=== PATIENT | male | born 1995 | race Caucasian/White ===

== ENCOUNTER 2017-08-24 16:26 | Observation (INO) | payer OTHER ==
[2017-08-24] MEDS ORDERED: HYDROmorphONE/DILAUDID 1 MG/ML INJ IVP ONE ×2 (17:52→19:34)
[2017-08-24] MEDS ORDERED: NS 1,000 ML IV ONE (17:52)
[2017-08-24] MEDS ORDERED: ONDANSETRON 4 MG/2 ML VIAL IVP ONE ×2 (17:52→19:34)
--- NOTE | 2017-08-24 17:55 | EDPHY ---
H & P Time Seen by Provider: 08/24/17 17:37 HPI/ROS: Chief complaint. Abdominal pain HPI. 22-year-old male presents emergency department with sudden onset of periumbilical and slight right lower quadrant pain that began about 2 o'clock this afternoon. He was well until this occurred. he has had nausea vomiting. No gas or stool since the onset. No urinary symptoms. No similar symptoms previously. The patient has had a left nephrectomy secondary to trauma from a soccer injury. Pain is worse with movement but also occurring at rest. No fever. No chest discomfort or trouble breathing ROS Constitutional. no fever/chills, no weakness Eyes. no problems with vision ENT. no sore throat, no nasal drainage Cardiovascular. no chest pain Respiratory. no shortness of breath, no cough Abdominal. Periumbilical and right-sided abdominal pain with nausea and vomiting. No diarrhea . no problems urinating MS. no calf pain/swelling, no neck/back pain, no joint pain Skin. no rash Lymph. no swollen glands Neuro. no headache, no dizziness, no difficulty walking or with speech Past Medical/Surgical History: Left nephrectomy. Social History: Single, nonsmoker, no alcohol Smoking Status: Never smoked Physical Exam: General Appearance: Alert well-developed male moderate severe distress vital signs are stable Eyes: Pupils equal and round no pallor or injection. ENT, Mouth: Mucous membranes are moist. Respiratory: There are no retractions, lungs are clear to auscultation. Cardiovascular: Regular rate and rhythm. Gastrointestinal: Abdomen is soft with tenderness in the periumbilical area and slightly to the right lower quadrant. No left-sided tenderness. Neurological: Awake and alert, sensory and motor exams grossly normal. Skin: Warm and dry, no rashes. Musculoskeletal: Neck is supple nontender. Extremities symmetrical, full range of motion. Psychiatric: Patient is oriented X 3, there is no agitation. Constitutional: Initial Vital Signs Temperature (C) 36.4 C 08/24/17 16:35 Heart Rate 81 08/24/17 16:35 Respiratory Rate 18 08/24/17 16:35 Blood Pressure 146/80 H 08/24/17 16:35 O2 Sat (%) 99 08/24/17 16:35 O2 Delivery Mode Room Air Allergies/Adverse Reactions: No Known Allergies Allergy (Verified 08/24/17 21:42) Home Medications: Medication Instructions Recorded NK [No Known Home Meds] 08/24/17 Medical Decision Making - Diagnostics Imaging Results: Imaging Impressions Abdomen CT 08/24/17 17:52 Impression: 1. Trace free fluid, uncertain clinical significance. 2. 6.6 cm left hydrocele. 3. Splenomegaly. 4. Known solitary right kidney 5. Additional findings, as above. Findings discussed with Hardeep Price M.D., on August 24, [address] abdomen and pelvis reviewed by me and discussed with Dr. Maldonado is normal. Normal appendix. No evidence for bowel obstruction. Procedures: IV normal saline. Dilaudid for pain. Zofran for nausea ED Course/Re-evaluation: Re-evaluation 8:00 p.m.-- Burn consult and discussion with Dr. Frey, surgeon, who sees the patient in the emergency department. He feels that the patient has appendicitis. Plan is admission and surgery Patient has been given antibiotics in the emergency department. I discussed findings with the patient and his parents. We discussed treatment plan including recommendation for surgery. They expressed understanding and agreement Differential Diagnosis: I considered small-bowel obstruction, appendicitis, kidney stone, vomiting and diarrhea illness such as gastroenteritis - Data Points Laboratory Results: Laboratory Results 08/24/17 17:42 08/24/17 17:42 08/24/17 08/24/17 08/24/17 17:55 17:42 17:42 WBC 8.94 10^3/uL 10^3/uL (3.80-9.50) RBC 5.23 10^6/uL 10^6/uL (4.40-6.38) Hgb 17.6 g/dL H g/dL (13.7-17.5) Hct 47.9 % % (40.0-51.0) MCV 91.6 fL fL (81.5-99.8) MCH 33.7 pg pg (27.9-34.1) MCHC 36.7 g/dL g/dL (32.4-36.7) RDW 11.8 % % (11.5-15.2) Plt Count 220 10^3/uL 10^3/uL (150-400) MPV 9.8 fL fL (8.7-11.7) Neut % (Auto) 75.6 % H % (39.3-74.2) Lymph % (Auto) 18.8 % % (15.0-45.0) Duc[place]ne % (Auto) 4.6 % % (4.5-13.0) Eos % (Auto) 0.3 % L % (0.6-7.6) Baso % (Auto) 0.3 % % (0.3-1.7) Nucleat RBC Rel Count 0.0 % % (0.0-0.2) Absolute Neuts (auto) 6.75 10^3/uL H 10^3/uL (1.70-6.50) Absolute Lymphs (auto) 1.68 10^3/uL 10^3/uL (1.00-3.00) Absolute Monos (auto) 0.41 10^3/uL 10^3/uL (0.30-0.80) Absolute Eos (auto) 0.03 10^3/uL 10^3/uL (0.03-0.40) Absolute Basos (auto) 0.03 10^3/uL 10^3/uL (0.02-0.10) Absolute Nucleated RBC 0.00 10^3/uL 10^3/uL (0-0.01) Immature Gran % 0.4 % % (0.0-1.1) Immature Gran # 0.04 10^3/uL 10^3/uL (0.00-0.10) Sodium 137 mEq/L mEq/L (134-144) Potassium 4.2 mEq/L mEq/L (3.5-5.2) Chloride 101 mEq/L mEq/L (97-110) Carbon Dioxide 24 mEq/l mEq/l (22-31) Anion Gap 12 mEq/L mEq/L (8-16) BUN 14 mg/dL mg/dL (7-23) Creatinine 1.2 mg/dL mg/dL (0.7-1.3) Estimated GFR > 60 Glucose 92 mg/dL mg/dL (70-100) Calcium 10.7 mg/dL H mg/dL (8.5-10.4) Phosphorus 2.6 mg/dL mg/dL (2.5-4.5) Urine Color YELLOW Urine Appearance CLEAR Urine pH 7.0 (5.0-7.5) Ur Specific Davenport 1.018 (1.002-1.030) Urine Protein NEGATIVE (NEGATIVE) Urine Ketones NEGATIVE (NEGATIVE) Urine Blood NEGATIVE (NEGATIVE) Urine Nitrate NEGATIVE (NEGATIVE) Urine Bilirubin NEGATIVE (NEGATIVE) Urine Urobilinogen NEGATIVE EU EU (0.2-1.0) Ur Leukocyte Esterase NEGATIVE (NEGATIVE) Urine RBC 1-3 /hpf /hpf (0-3) Urine WBC 1-3 /hpf /hpf (0-3) Ur Epithelial Cells NONE SEEN /lpf /lpf (NONE-1+) Urine Mucus TRACE /lpf /lpf (NONE-1+) Urine Glucose NEGATIVE (NEGATIVE) Medications Given: Discontinued Medications Hydromorphone HCl (Dilaudid) 1 mg IVP EDNOW ONE Stop: 08/24/17 17:53 Last Admin: 08/24/17 18:04 Dose: 1 mg Hydromorphone HCl (Dilaudid) 0.5 mg IVP EDNOW ONE Stop: 08/24/17 19:35 Last Admin: 08/24/17 19:35 Dose: 0.5 mg Sodium Chloride (Ns) 1,000 mls @ 0 mls/hr IV EDNOW ONE; Wide Open PRN Reason: Protocol Stop: 08/24/17 17:53 Last Admin: 08/24/17 18:04 Dose: 1,000 mls Cefazolin Sodium/Dextrose (Ancef 2 Gm (Premix)) 100 mls @ 200 mls/hr IV ONCALL ONE PRN Reason: Protocol Stop: 08/24/17 21:29 Last Admin: 08/24/17 21:24 Dose: 100 mls Ondansetron HCl (Zofran) 4 mg IVP EDNOW ONE Stop: 08/24/17 17:53 Last Admin: 08/24/17 18:03 Dose: 4 mg Ondansetron HCl (Zofran) 4 mg IVP EDNOW ONE Stop: 08/24/17 19:35 Last Admin: 08/24/17 19:35 Dose: 4 mg Departure - Departure Disposition: [facility] Acute Clinical Impression: Acute appendicitis Qualifiers: Acute appendicitis type: with localized peritonitis Qualified Code(s): K35.3 - Acute appendicitis with localized peritonitis Condition: Fair
[2017-08-24 17:59] LABS: % IMMATURE GRANULYOCYTES 0.4 % (0.0-1.1); ABSOLUTE IMMATURE GRANULOCYTES 0.04 10^3/uL (0.00-0.10); ADD DIFF? NO; ADD MORPH? NO; ADD SCAN? NO; ATYPICAL LYMPHOCYTE FLAG 10 (0-99); FRAGMENT RBC FLAG 0 (0-99); HEMATOCRIT 47.9 % (40.0-51.0); HEMOGLOBIN 17.6 g/dL (13.7-17.5); LEFT SHIFT FLG 0 (0-99); LIPEMIA HEMOLYSIS FLAG 90 (0-99); MEAN CELL HEMOGLOBIN 33.7 pg (27.9-34.1); MEAN CELL HEMOGLOBIN CONCENTR. 36.7 g/dL (32.4-36.7); MEAN CELL VOLUME 91.6 fL (81.5-99.8); MEAN PLATELET VOLUME 9.8 fL (8.7-11.7); PLATELET CLUMPS FLAG 0 (0-99); PLATELET COUNT 220 10^3/uL (150-400); RED BLOOD CELL COUNT 5.23 10^6/uL (4.40-6.38); RED CELL DISTRIBUTION WIDTH 11.8 % (11.5-15.2)
[2017-08-24 18:17] LABS: COLOR YELLOW; LEUKOCYTE ESTERASE,URINE NEGATIVE (NEGATIVE); NITRITE,URINE NEGATIVE (NEGATIVE)
[2017-08-24 18:19] LABS: MUCUS TRACE /lpf (NONE-1+)
[2017-08-24 18:24] LABS: ANION GAP 12 mEq/L (8-16); CALCIUM 10.7 mg/dL (8.5-10.4); CARBON DIOXIDE 24 mEq/l (22-31); CHLORIDE 101 mEq/L (97-110); CREATININE 1.2 mg/dL (0.7-1.3); GLOMERULAR FILTRATION RATE > 60; GLUCOSE 92 mg/dL (70-100); POTASSIUM 4.2 mEq/L (3.5-5.2); SODIUM 137 mEq/L (134-144)
[2017-08-24] MEDS ORDERED: IOPAMIDOL (ISOVUE-300) 100 ML BTL ONE (18:34)
[2017-08-24] MEDS ORDERED: HYDROmorphONE/DILAUDID 1 MG/ML INJ ONE (19:24)
[2017-08-24] MEDS ORDERED: ONDANSETRON 4 MG/2 ML VIAL ONE ×2 (19:32→23:12)
[2017-08-24] MEDS ORDERED: ceFAZolin 2 GM/DEXTROSE 100 ML IV ONE (21:00)
[2017-08-24] MEDS ORDERED: CEFAZOLIN 2 GM/DEXTROSE/100 ML BAG IV ONE (21:08)
--- NOTE | 2017-08-24 21:22 | GHP ---
[f rep st] HISTORY AND PHYSICAL DATE OF ADMISSION: 08/24/2017 CHIEF COMPLAINT: Abdominal pain. HISTORY OF PRESENT ILLNESS: This is an otherwise healthy 22-year-old male, who presents to the emergency department with acute onset abdominal pain. The patient was in his usual state of health, ate lunch at noon today. States that about 2 p.m. exactly, began to have periumbilical pain which has since relocated to his right lower quadrant. Because of the persistence of pain, as well as extreme nausea and vomiting, the patient presented to the emergency department for further workup. On my examination, the patient has been medicated, but still complains of right lower quadrant pain at McBurney's point, worse when the medication wears off, worse with palpation. The nausea has improved. However, he denies having any fevers and chills, and other than the pain and the now resolved nausea, he has no complaints. PAST MEDICAL HISTORY: None. PAST SURGICAL HISTORY: Left nephrectomy for traumatic kidney injury performed 12 years ago via a horizontal left subcostal incision. FAMILY HISTORY: Noncontributory. SOCIAL HISTORY: Student at [employer] studying [employer]. Denies illicit drug use. MEDICATIONS: Reviewed in [facility]. REVIEW OF SYSTEMS: Full 10-point ROS performed ALLERGIES: None. PHYSICAL EXAM: VITAL SIGNS: Blood pressure 146/80, heart rate 81, his temperature is 36.4 and he is 99% on room air. CONSTITUTIONAL: No apparent distress. He does appear uncomfortable. EYES: His pupils are equal, round, and reactive to light and accommodation. He has anicteric sclerae. His extraocular movements are intact. ENMT: He has dry mucous membranes. His hearing is normal. His ears appear normal with no mucosal ulcers. CARDIOVASCULAR: He has a regular rate and rhythm without any murmurs. RESPIRATORY: He has no respiratory distress. No rales or rhonchi. GI: He has normoactive bowel sounds. His abdomen is soft. He is tender to palpation in the right lower quadrant at McBurney's point, without rebound tenderness. MUSCULOSKELETAL: He has full muscle strength without tenderness. Normal joint range of motion. NEUROLOGIC: He is alert and oriented x3. His cranial nerves 2-12 are intact. He has no weakness or numbness. PSYCHIATRIC: He is interacting appropriately. He is not anxious. He is not encephalopathic. LYMPH/HEME/IMMUNOLOGIC: He has no cervical lymphadenopathy. He has no supraclavicular lymphadenopathy. LABORATORY DATA: White count is normal at 8, hemoglobin is elevated at 17.6, platelets are normal at 220. Chemistry is unremarkable. His creatinine is 1.2. CT scan shows a normal-appearing appendix with no stranding or free fluid, no free air, but likely not or early appendicitis. These images were personally reviewed by me. ASSESSMENT AND PLAN: A 22-year-old male with physical exam findings concerning for appendicitis. I told the patient that although he has a normal white blood cell count and his CT scan is fairly under-whelming, he does have a classical history for appendicitis, and that I am concerned that given his history and persistence of pain that he does likely have an early appendicitis. I gave him the option of observation versus exploration. He stated that he would like to proceed with exploration with appendectomy given the fact that he has persistence of pain. Given this, I will plan to subsequently take the patient to the operating room for exploration. Risks, benefits, and alternatives were discussed. Will plan to proceed to the operating room as time permits. /[id number]/MODL MTDD
[2017-08-24] MEDS ORDERED: MIDAZOLAM 2 MG/2 ML VIAL IVP ONE (22:49)
[2017-08-24] MEDS ORDERED: BUPIVACAINE 0.25% 30 ML SDV ONE (22:49)
--- NOTE | 2017-08-24 22:52 | PDANEPAE ---
ANE Past Medical History - Cardiovascular History Hx Hypertension: No Hx Arrhythmias: No Hx Chest Pain: No Hx Coronary Artery / Peripheral Vascular Disease: No Hx CHF / Valvular Disease: No Hx Palpitations: No - Pulmonary History Hx COPD: No Hx Asthma/Reactive Airway Disease: No Hx Recent Upper Respiratory Infection: No Hx Oxygen in Use at Home: No Hx Sleep Apnea: No Sleep Apnea Screening Result - Last Documented: Negative - Endocrine History Hx Diabetes: No - Chronic Pain History Chronic Pain: Yes ANE Review of Systems Review of Systems: - Exercise capacity Exercise capacity: >=4 METS - Systems Genitourinary: Reports: no symptoms, other (Solitary kidney (nephrectomy following trauma, age 9)) ANE Patient History - Allergies Allergies/Adverse Reactions: No Known Allergies Allergy (Verified 08/24/17 21:42) - Home Medications Home Medications: NK [No Known Home Meds] 08/24/17 [Last Taken Unknown] - NPO status NPO Since - Liquids (Date): 08/24/17 NPO Since - Liquids (Time): 13:00 NPO Since - Solids (Date): 08/24/17 NPO Since - Solids (Time): 13:00 - Anes Hx Anes Hx: no prior problems - Smoking Hx Smoking Status: Never smoked ANE Labs/Vital Signs - Labs Result Diagrams: 08/24/17 17:42 08/24/17 17:42 - Vital Signs Blood Pressure: 123/73 Heart Rate: 60 Respiratory Rate: 15 O2 Sat (%): 99 Height: 190.5 cm Weight: 86.183 kg ANE Physical Exam - Airway Neck exam: FROM Mallampati Score: Class 1 Mouth exam: normal dental/mouth exam - Pulmonary Pulmonary: no respiratory distress, no rales or rhonchi, clear to auscultation - Cardiovascular Cardiovascular: regular rate and rhythym, no murmur, rub, or gallop - ASA Status ASA Status: I, E ANE Anesthesia Plan Anesthesia Plan: general endotracheal anesthesia
[2017-08-24] MEDS ORDERED: ROCURONIUM 50 MG/5 ML VIAL ONE (23:11)
[2017-08-24] MEDS ORDERED: LIDOCAINE 2% 5 ML SDV ONE (23:11)
[2017-08-24] MEDS ORDERED: DEXAMETHASONE 4 MG/ML VIAL ONE ×2 (23:11→23:12)
[2017-08-24] MEDS ORDERED: fentaNYL 100 MCG/2 ML INJ ONE (23:11)
[2017-08-24] MEDS ORDERED: KETOROLAC 30 MG/1 ML SDV ONE (23:11)
[2017-08-24] MEDS ORDERED: PROPOFOL 200 MG/20 ML VIAL ONE (23:11)
[2017-08-24] MEDS ORDERED: SUGAMMADEX SODIUM 200 MG/2 ML VIAL IVP ONE (23:12)
[2017-08-24] MEDS ORDERED: MIDAZOLAM 2 MG/2 ML VIAL ONE (23:22)
[2017-08-24] MEDS ORDERED: NALOXONE HCL 0.4 MG/ML INJ IVP PRN (23:35)
[2017-08-24] MEDS ORDERED: LR 500 ML IV PRN (23:35)
[2017-08-24] MEDS ORDERED: ONDANSETRON 4 MG/2 ML VIAL IVP PRN (23:35)
[2017-08-24] MEDS ORDERED: fentaNYL 100 MCG/2 ML INJ IVP PRN (23:35)
[2017-08-24] MEDS ORDERED: OXYCODONE/APAP 5/325 TAB PO PRN (23:35)
[2017-08-24] MEDS ORDERED: ACETAMINOPHEN 500 MG TAB PO PRN (23:35)
[2017-08-24] MEDS ORDERED: MEPERIDINE 25 MG/ML SYR IVP PRN (23:35)
[2017-08-24] MEDS ORDERED: PROMETHAZINE HCL 25 MG/ML INJ IVP PRN (23:35)
[2017-08-25] MEDS ORDERED: ONDANSETRON 4 MG/2 ML VIAL IVP PRN (00:17)
[2017-08-25] MEDS ORDERED: HYDROmorphONE/DILAUDID 1 MG/ML INJ IVP PRN (00:17)
[2017-08-25] MEDS ORDERED: HYDROCODONE/APAP 5/325 TAB PO PRN (00:17)
--- NOTE | 2017-08-25 00:17 | POSTOPPROG ---
Post Op Note Date of Operation: 08/25/17 Surgeon: Vinny Frey Anesthesiologist: Leta Anesthesia: GET(General Endotracheal) Pre-op Diagnosis: Appendicitis Post-op Diagnosis: possible early appendicitis Procedure: lap appy Findings: relatively normal appearing apendix Inf/Abcess present in the surg proc area at time of surgery?: No EBL: Minimal Specimen(s): appendix
--- NOTE | 2017-08-25 00:26 | POSTANESTH ---
Post Anesthetic Evaluation Cardiovascular Status: Normal, Stable, Similar to Pre-Op Cond Respiratory Status: Normal, Stable, Similar to Pre-op Cond. Level of Consciousness/Mental Status: Can Participate in Eval, Mildly Sleepy, Arousable Pain Control: Adequate, Prn Tx Ordered Nausea/Vomiting Control: Adequate, Prn Tx Ordered Complications Possibly Related to Anesthesia: None Noted
[2017-08-25] MEDS ORDERED: 1/2 NS IV SCH (00:30)
[2017-08-25] MEDS ORDERED: D5W IV SCH (00:30)
[2017-08-25] MEDS ORDERED: POTASSIUM CL IV SCH (00:30)
[2017-08-25] MEDS ORDERED: D5W 1/2 NS W/ 20 KCl/L 1,000 ML IV SCH (00:30)
[2017-08-25 05:04] VITALS: RESP 16; TEMP 98.1; O2SAT 95
--- NOTE | 2017-08-25 05:28 | GOP ---
[f rep st] OPERATIVE REPORT DATE OF OPERATION: 08/25/2017 SURGEON: Vinny Frey MD PRODUCTION TROUBLESHOOTER: None. ANESTHESIA: General endotracheal provided by Vance Gillette MD. PREOPERATIVE DIAGNOSIS: Appendicitis. POSTOPERATIVE DIAGNOSIS: Possible early appendicitis. PROCEDURE PERFORMED: Laparoscopic appendectomy. FINDINGS: Appendix was relatively normal appearing. There was some free fluid within the pelvis whi ch was completely irrigated out. Uneventful appendectomy performed. SPECIMENS: Appendix. ESTIMATED BLOOD LOSS: 5 cc. DESCRIPTION OF PROCEDURE: The patient was greeted in the preoperative suite. Once again, risks, brandy efits, and alternatives were discussed. Consent was signed. He was then brought back to the operati ve suite, placed on the OR table in supine position. After all anesthesia machines, including SCDs, were on and functioning, World Health Organization timeout was performed. After successful induction of general anesthesia, the patient's abdomen was widely prepped and draped in typical sterile fashio n. I entered the abdomen via an infraumbilical cutdown through which the Veress needle was passed. I in sufflated to 15 mmHg CO2, which was well tolerated by the patient. Through this, I then inserted a 1 0 mm Visiport. Once successfully in the abdomen, I placed 2 additional 5 mm trocars, 1 in the suprap ubic, 1 in the left lower quadrant, both under direct visualization. I identified the appendix by tr acing the taeniae inferiorly. Again, it had minimal induration and injection. I created a window at the base, successfully amputated it from the cecal base using a single fire. In the same fashion I amputated the mesoappendix using the vascular load. It was then removed using an EndoCatch bag. I d id have some bleeding at my mesenteric staple line which I took successfully with a 5 mm clip of wire . After obtaining hemostasis, I irrigated the right lower quadrant as well as the patient's pelvis wher e he did have some free fluid. I then inspected the remainder of the patient's abdomen and found no other significant findings. Inspected my staple lines again which were now hemostatic. I then insti lled local anesthetic into all port sites which were removed under direct visualization. Pneumoperit oneum was then desufflated. I closed my infraumbilical port site using a [id number] fascial sut ure, noting excellent fascial reapproximation with an 0 Vicryl, closed my skin with Monocryl over whi ch Dermabond was placed. The patient was then extubated in the operative suite and taken to the PACU in satisfactory condition. DRAINS: None. COUNTS: All counts were reported as correct x2. /[id number]/MODL
[2017-08-25] MEDS ORDERED: IBUPROFEN 600 MG TAB PO SCH (06:00)
[2017-08-25] MEDS ORDERED: KETOROLAC 15 MG/1 ML SDV IVP SCH (06:00)
[2017-08-25 08:11] VITALS: BP 112/54; PULSE 65
--- NOTE | 2017-08-25 08:49 | SOAPPROG ---
SOAP Progress Note Assessment/Plan: Assessment/Plan: 22 Y M s/p lap appy. Doing well. Dc to home today. D/w'ed Dr. Frey. S: pain controlled. no n/v. tired. no fever. O: alert, nad mmm, ncat no wob rrr abd soft, inc cdi 08/25/17 08:48 Objective: Vital Signs Temp Pulse Resp BP Pulse Ox 36.7 C 65 16 112/54 L 95 08/25/17 08:08 08/25/17 08:08 08/25/17 08:08 08/25/17 08:08 08/25/17 08:08 08/24/17 08/25/17 08/26/17 05:59 05:59 05:59 Intake Total 1700 421 Output Total 20 Balance 1680 421 ICD10 Worksheet Patient Problems: Problems Problem Status Onset Acute appendicitis Acute
--- NOTE | 2017-08-26 11:47 | ASDISCHSUM ---
Discharge Information Plan Status:Home with No Needs Medically Cleared to Leave: Discharge Date:08/25/2017 12:42 PM D/C Disposition:Home, Routine, Self-Care ADT D/C Disposition:Home, Routine, Self-Care Projected Discharge Date:08/25/2017 12:42 PM Transportation at D/C: Discharge Delay Reason: Follow-Up Date:08/25/2017 12:42 PM Discharge Slot: Final Diagnosis: Placement Information Patient Contact Information Contact Name:JADEN Relationship:Father Address:[address] [place] [address] City:[place] Alternate Phone: [facility]/Zip Code:[place] [address] Email: Financial Information Financial Class:HMO and PPO Plans Primary Plan Desc:[facility] PPO POS Primary Plan Number:[id number] Secondary Plan Desc: Secondary Plan Number: Assessment Information Intervention Information
== END 2017-08-25 12:42 | disposition home or self-care (01) ==
LOC: INTOOBSV 21:29 → F1N 22:24
PROVIDERS: ADMIT Surgery; ATTEND Surgery
PROC: 0DTJ4ZZ Resection of Appendix, Percutaneous Endoscopic Approach (ICD-10-PCS; principal; 2017-08-24 22:30)
DX: K35.3 Acute appendicitis with localized peritonitis (principal); Z90.5 Acquired absence of kidney
CPT/HCPCS: 44970; 74177; 96361; 96365; 96375; 96376; 99285; G0378; J0171; J0690; J1100; J1170; J1885; J2250; J2405; J2704; J3010; Q9967